=== PATIENT | female | born 1985 ===

== ENCOUNTER 2017-05-22 17:09 | Emergency (ER) | payer MEDICAID ==
[2017-05-22 17:23] VITALS: BP 113/70; PULSE 84; RESP 16; TEMP 98.5; O2SAT 100
--- NOTE | 2017-05-22 19:19 | ED PDOC ---
HPI: General Adult Time Seen by Provider: 05/22/17 18:11 Chief Complaint (Nursing): ENT Problem Chief Complaint (Provider): ENT Problem History Per: Patient History/Exam Limitations: no limitations Onset/Duration Of Symptoms: Days (x1) Current Symptoms Are (Timing): Still Present Additional Complaint(s): 32 year old female presents to ED with complaints of throat pain x1 day. Patient states she ate fish last night and is concerned that she possibly swallowed a fishbone. (-) difficulty breathing or difficulty swallowing. Patient also complains of suprapubic abdominal pain x2 days. (-) nausea, vomiting, decreased PO intake, or urinary symptoms. [id number] Conveyor Mechanic: [id number] PCP: None Past Medical History Reviewed: Historical Data, Nursing Documentation, Vital Signs Vital Signs: Last Vital Signs Temp 98.5 F 05/22/17 17:20 Pulse 84 05/22/17 17:20 Resp 16 05/22/17 17:20 BP 113/70 05/22/17 17:20 Pulse Ox 100 05/22/17 19:47 - Family History Family History: States: Unknown Family Hx - Allergies Allergies/Adverse Reactions: Allergies Allergy/AdvReac Type Severity Reaction Status Date / Time No Known Allergies Allergy Verified 05/22/17 17:20 Review of Systems ROS Statement: Except As Marked, All Systems Reviewed And Found Negative ENT: Positive for: Throat Pain. Negative for: Other ((-) difficulty swallowing) Respiratory: Negative for: Other ((-) difficulty breathing) Gastrointestinal: Positive for: Abdominal Pain (suprapubic pain). Negative for : Nausea, Vomiting, Other ((-) decreased PO intake) Genitourinary Female: Negative for: Dysuria, Frequency, Incontinence, Hematuria Physical Exam - Reviewed Nursing Documentation Reviewed: Yes Vital Signs Reviewed: Yes - Physical Exam Appears: Positive for: Non-toxic, No Acute Distress ENT: Positive for: Normal ENT Inspection, Pharynx Is (clear). Negative for: Pharyngeal Erythema, Tonsillar Exudate, Tonsillar Swelling Neck: Positive for: Normal, Painless ROM, Supple Gastrointestinal/Abdominal: Positive for: Normal Exam, Soft. Negative for: Tenderness - ECG O2 Sat by Pulse Oximetry: 100 (RA) Pulse Ox Interpretation: Normal Medical Decision Making Medical Decision Makin Initial impression: throat irritation and suprapubic pain r/o UTI Initial plan: * XR NECK SOFT TISSUE * UA 1947 XR: mild scoliosis, no acute abnormality. No foreign body. Scribe Attestation: Documented by Yissel White, acting as a scribe for Farhan Wells PA-C. Provider Scribe Attestation: All medical record entries made by the Scribe were at my direction and personally dictated by me. I have reviewed the chart and agree that the record accurately reflects my personal performance of the history, physical exam, medical decision making, and the department course for this patient. I have also personally directed, reviewed, and agree with the discharge instructions and disposition. Disposition - Clinical Impression Clinical Impression: Foreign body, Throat discomfort, Ear, nose and throat disorder - Disposition Referrals: [facility] [place] [facility] [Outside] Disposition Time: 19:45 Condition: GOOD Instructions: Sore Throat, Adult (DC) Forms: [facility] (Malawian) Print Language: ALBANIAN
[2017-05-22 19:45] LABS: SQUAMOUS EPITHIAL 5 /hpf (0-5); URINE BACTERIA RARE (<OCC); URINE BILIRUBIN NEGATIVE (NEGATIVE); URINE BLOOD NEGATIVE (NEGATIVE); URINE CLARITY SLIGHTY-CLOUDY (Clear); URINE COLOR YELLOW (YELLOW); URINE GLUCOSE (UA) NEG (Normal); URINE LEUKOCYTE ESTERASE NEG Leu/uL (Negative); URINE PROTEIN NEGATIVE (NEGATIVE); URINE UROBILINOGEN 0.2-1.0 mg/dL (0.2-1.0)
--- NOTE | 2017-05-23 09:46 | RAD ---
PROCEDURE: Radiographs of the neck (soft tissue). HISTORY: r/o FB COMPARISON: None. TECHNIQUE: Frontal and Lateral Radiographs of the neck, optimized for soft tissue visualization. FINDINGS: SOFT TISSUES: Unremarkable. No radiopaque foreign body seen. CERVICAL SPINE: No evidence of acute anterior wedge compression fractures nor retropulsed fragments. OTHER FINDINGS: None. IMPRESSION: Unremarkable radiographs of the soft tissues of the neck. Consider followup CT scan if further evaluation is required.
== END 2017-05-22 20:11 | disposition home or self-care (01) ==
LOC: H.ER 17:09
DX: R09.89 Other specified symptoms and signs involving the circulatory and respiratory systems (principal); R07.0 Pain in throat; H93.90 Unspecified disorder of ear, unspecified ear; J34.9 Unspecified disorder of nose and nasal sinuses